=== PATIENT | male | born 1970 | race African-American/Black ===

== ENCOUNTER 2025-02-09 00:47 | Day surgery (SDC) | payer MEDICARE, SELFPAY ==
--- OUTSIDE RECORDS SUMMARY | 2023-07-29 07:25 | XMS_ITS | Continuity of Care Document ---
Author Organization [facility] Address [address] [place] [address] Phone Care Team Providers Care Conference Planning Manager Name Role Phone Abraham MIR, Casper Unavailable Unavailabl e Advance Directives Directive Yes / No Effective Date File Name No Information Encounters Encounter Description Practice Location Reason(s) For Visit Diagnoses Date Provider Providers Copied on [facility] , [address], [place], [place], [address], tel:[phone] [facility] No Information Caesar Shirley. [address], [place], [place], [address], [place]. tel:[phone] Family History Family Member Type Diagnosis Age At Onset No Information Payers Payer name Insurance type Covered libertarian ID Authoriza tion(s) No Information Social History Type Description Quantity Date Captured Comments Sex Male Smoking Status No Information Chief Complaint And Reason For Visit No Information Reason For Referral Reason For Referral No Information History Of Present Illness Encounter Date Complaint History Of Prese nt Illness No Information Functional Status Date Functional Assessmen t No Information Instructions Date Instruction Additional Infor mation No Information Assessments Type Assessment Date No Information Patient Care Teams Name Effective Dates (start - stop) Status Members No Information
--- OUTSIDE RECORDS SUMMARY | 2024-06-23 03:30 | XMS_ITS ---
Author Organization [facility] Address [address] [place] [id number] Care Team Providers Care Swatch Paster Name Role Phone GODWIN ASHTON Primary Care Provider Social History Sex Assigned At : Social History Observation Description Sex Assigned At Male Encounters Encounter Location Date Provider Diagnosis [facility] [address] [place] [id number] 06/23/2024 GODWIN ASHTON Plan Of Treatment No Information Progress Notes * Kareem REESEi ADOB:[birth year] (54 yo M)Acc No.[id number]:06/23/2024 Progress Notes Patient: Harmony MEDINA Provider: Juan ASHTON M.D. :1970 A ge:53 Y S ex:Male Date:06/23/2024 Address:[facility] [place] [place], [place] Subjective: * Chief Complaints: * * Medical History: * Ocular Surgical History: Objective: * Vitals: Vision: Spectacle Rx: Contact Lens: Eye Examination: Special Tests: Assessment: Plan: * Treatment: Care Plan: * Problems: * Billing Information: * Visit Code: * Procedure Codes: * Electronic signature of KASIA ASHTON MD on 02/09/2025 at 12:53 AM CDT Sign off status: Pending * Provider: Juan ASHTON M.D. Date: 06/23/2024 Generated for David mercedes/Angela/Shu on: 0 02/09/2025 12:53 AM CDT
--- OUTSIDE RECORDS SUMMARY | 2024-06-30 04:00 | XMS_ITS ---
Author Organization [facility] Address [address] [place] [id number] Care Team Providers Care Production Line Technician Name Role Phone GODWIN ASHTON Primary Care Provider [phone] Sinai Pritchett Unavailable [phone] REASON FOR VISIT 3 month f/u Social History Sex Assigned At : Social History Observation Description Sex Assigned At Male Encounters Encounter Location Date Provider Diagnosis [facility] [address] [place] [id number] 06/30/2024 [facility] Pritchett Plan Of Treatment No Information Progress Notes * Harmony REESE ADOB:[birth year] (54 yo M)Acc No.[id number]:06/30/2024 Patient: Felton HOLGUIN Harmony Yancy Provider: Naeem Pritchett DPM :1970 A ge:53 Y S ex:Male Date:06/30/2024 Address:[facility] [place] [place] [facility] Pcp:GODWIN ASHTON Subjective: * Chief Complaints: * 1 . 3 month f/u. * Medical History: Objective: * Vitals: Assessment: Plan: * Treatment: Care Plan: * Problems: * Billing Information: * Visit Code: * Procedure Codes: * Electronic signature of Brayden Pritchett DPM on 02/09/2025 at 12:53 AM CDT Sign off status: Pending * Provider: Naeem Pritchett DPM Date: 0 06/30/2024 Generated for David mercedes/Angela/Shu on: 0 02/09/2025 12:53 AM CDT
--- OUTSIDE RECORDS SUMMARY | 2024-06-30 10:30 | XMS_ITS ---
Author Organization [facility] Address [address] [place] [phone] Care Team Providers Care Chief Specialist Leed Name Role Phone GODWIN ASHTON Primary Care Provider [phone] S[facility] Pritchett Unavailable [phone] REASON FOR VISIT f/u Social History Sex Assigned At : Social History Observation Description Sex Assigned At Male Encounters Encounter Location Date Provider Diagnosis [facility] [address] [place] [id number] 06/30/2024 S[facility] Pritchett Plan Of Treatment No Information Progress Notes * Harmony REESE ADOB:[birth year] (54 yo M)Acc No.[id number]:06/30/2024 Patient: Felton KAYLYNNEAL Harmony Haines Provider: Naeem Pritchett DPM :1970 A ge:53 Y S ex:Male Date:06/30/2024 Address:[facility] [address] [facility] Pcp:GODWIN ASHTON Subjective: * Chief Complaints: * 1 . F/u. * Medical History: Objective: * Vitals: Assessment: [...]
--- OUTSIDE RECORDS SUMMARY | 2024-07-20 09:15 | XMS_ITS ---
Author Organization [facility] Address [address] [place], [place] [id number] Care Team Providers Care Booky Name Role Phone GODWIN ASHTON Primary Care Provider LELA COLLAZO [phone] Social History Sex Assigned At : Social History Observation Description Sex Assigned At Male Encounters Encounter Location Date Provider Diagnosis [facility] [address] [place], [place] [phone] 07/20/2024 LELA COLLAZO Plan Of Treatment No Information Progress Notes * Kareem REESEi ADOB:[birth year] (54 yo M)Acc No.[id number]:07/20/2024 Progress Notes Patient: Harmony MEDINA Appointment Provider: Yancy COLLAZO NP :1970 A ge:53 Y S ex:Male Date:07/20/2024 Address:[facility] [address] [facility] Pcp:GODWIN ASHTON Subjective: * Chief Complaints: * * Medical History: * Ocular Surgical History: Objective: * Vitals: Vision: Spectacle Rx: Contact Lens: Eye Examination: Special Tests: Assessment: Plan: * Treatment: Care Plan: * Problems: * Billing Information: * Visit Code: * Procedure Codes: * Electronic signature of PORSHA EDWARD on 02/09/2025 at 12:52 AM CDT Sign off status: Pending * Appointment Provider: Yancy COLLAZO NP Date: 0 07/20/2024 Generated for David mercedes/Angela/Shu on: 0 02/09/2025 12:52 AM CDT
--- OUTSIDE RECORDS SUMMARY | 2024-08-18 04:00 | XMS_ITS ---
Author Organization [facility] Address [address] [place] [phone] Care Team Providers Care Scaler Name Role Phone GODWIN ASHTON Primary Care Provider OPAL OVALLE [phone] REASON FOR VISIT ANNUAL DM EYE EXAM Social History Sex Assigned At : Social History Observation Description Sex Assigned At Male Encounters Encounter Location Date Provider Diagnosis [facility] [address] [place], [place] [phone] 08/18/2024 OPAL OVALLE Plan Of Treatment No Information Progress Notes * Harmony REESE ADOB:[birth year] (54 yo M)Acc No.[id number]:08/18/2024 Patient: Felton HOLGUIN Harmony Haines Provider: Ena OVALLE OD :1970 A ge:53 Y S ex:Male Date:08/18/2024 Address:[facility] [address] [place], [place] Pcp:GODWIN ASHTON Subjective: * Chief Complaints: * 1 . ANNUAL DM EYE EXAM. * Medical History: * Ocular Surgical History: Objective: * Vitals: Vision: Spectacle Rx: Contact Lens: Eye Examination: Special Tests: Assessment: Plan: * Treatment: * Billing Information: * Visit Code: * Procedure Codes: * Electronic signature of JARAD OVALLE OD on 02/09/2025 at 12:53 AM CDT Sign off status: Pending * Provider: Ena OVALLE OD Date: 0 08/18/2024 Generated for David mercedes/Angela/Shu on: 0 02/09/2025 12:53 AM CDT
--- OUTSIDE RECORDS SUMMARY | 2024-12-30 12:00 | XMS_ITS ---
Author Organization [facility] Address [address] [address] Care Team Providers Care Ceramic Coater Machine Name Role Phone BeGregoryDeclan Unavailable [phone] Social History Sex Assigned At : Social History Observation Description Sex Assigned At Male Problems Problem Type SNOMED Code ICD Code Onset Dates Problem Status W/U Status Risk Notes Problem Chronic kidney disease stage 3 (disorder) (368931606) Stage 3 chronic kidney disease (N18.30) Active confirmed Problem Heart failure (30538871) Heart failure, unspecified (I50.9) Active confirmed Problem Obesity (105192223) Obesity, unspecified (E66.9) Active confirmed Problem Diabetic renal disease (541959752) Type 2 diabetes mellitus with diabetic chronic kidney disease (E11.22) Active confirmed Encounters Encounter Location Date Provider Diagnosis [facility] [address] [facility] [address] [place] [address] 12/30/2024 Declan Be Stage 3 chronic kidney disease N18.30 ; Heart failure, unspecified I50.9 ; Obesity, unspecified E66.9 and Type 2 diabetes mellitus with diabetic chronic kidney disease E11.22 Assessments Encounter Date Diagnosis (ICD Code) Assessment Notes Treatment Notes Treatment Clinical Notes Section Notes 12/30/2024 Stage 3 chronic kidney disease (ICD-10 - N18.30) 12/30/2024 Heart failure, unspecified (ICD-10 - I50.9) 12/30/2024 Obesity, unspecified (ICD-10 - E66.9) 12/30/2024 Type 2 diabetes mellitus with diabetic chronic kidney disease (ICD-10 - E11.22) Plan Of Treatment Next Appt Details Provider Name:Declan Be , 02/10/2025 02:30:00 PM, [address], [place], [address], Progress Notes * Hamrony REESE ADOB:[birth year] (54 yo M)Acc No.[id number]:12/30/2024 Progress Notes Patient: Harmony MEDINA Provider: Farnaz KOCH MD, F.A.C.P, F.A.S.N. :1970 A ge:54 Y S ex:Male Date:12/30/2024 Address:[address] [place] [address] [facility] [facility] Subjective: * Chief Complaints: * * Medical History: Objective: * Vitals: Assessment: * Assessment: 1. S tage 3 chronic kidney disease - N18.30 (Primary) 2 . H eart failure, unspecified - I50.9 3 . O besity, unspecified - E66.9 4 . T ype 2 diabetes mellitus with diabetic chronic kidney disease - E11.22 Plan: * Treatment: * Billing Information: * Visit Code: 05340 Office Visit, New Pt., Level 5. * Procedure Codes: * Electronic signature of Jt Be MD on 02/09/2025 at 12:52 AM CDT Sign off status: Pending * Provider: Farnaz KOCH MD, F.A.C.P, F.A.S.N. Date: 12/30/2024 Generated for Printing/Faxing/eTransmitting on: 0 02/09/2025 12:52 AM CDT
--- OUTSIDE RECORDS SUMMARY | 2025-01-20 12:00 | XMS_ITS ---
Author Organization [facility] Address [address] [address] Care Team Providers Care Shipping Supervisor Name Role Phone Declan Be Unavailable [phone] Social History Sex Assigned At : Social History Observation Description Sex Assigned At Male Encounters Encounter Location Date Provider Diagnosis [place] [facility] [address] [facility] [address] [place] [address] 01/20/2025 Declan Haile Stage 3 chronic kidney disease N18.30 ; Heart failure, unspecified I50.9 ; Obesity, unspecified E66.9 ; Type 2 diabetes mellitus with diabetic chronic kidney disease E11.22 and Proteinuria, unspecified R80.9 Assessments Encounter Date Diagnosis (ICD Code) Assessment Notes Treatment Notes Treatment Clinical Notes Section Notes 01/20/2025 Stage 3 chronic kidney disease (ICD-10 - N18.30) 01/20/2025 Heart failure, unspecified (ICD-10 - I50.9) 01/20/2025 Obesity, unspecified (ICD-10 - E66.9) 01/20/2025 Type 2 diabetes mellitus with diabetic chronic kidney disease (ICD-10 - E11.22) 01/20/2025 Proteinuria, unspecified (ICD-10 - R80.9) Plan Of Treatment Next Appt Details Provider Name:Declan Be , 02/10/2025 02:30:00 PM, [address] [facility], [place], [address], Progress Notes * Harmony REESE ADOB:[birth year] (54 yo M)Acc No.[id number]:01/20/2025 Patient: Felton KAYLYNNEAL Harmony Haines Provider: Farnaz KOCH MD, F.A.C.P, F.A.S.N. :1970 A ge:54 Y S ex:Male Date:01/20/2025 Address:[place], [place] Subjective: * Chief Complaints: Objective: Assessment: * Assessment: 1. S tage 3 chronic kidney disease - N18.30 (Primary) 2 . H eart failure, unspecified - I50.9 3 . O besity, unspecified - E66.9 4 . T ype 2 diabetes mellitus with diabetic chronic kidney disease - E11.22 5 . P roteinuria, unspecified - R80.9 Plan: * Billing Information: * Visit Code: 45978 Office Visit, Est Pt., Level 5. * Procedure Codes: * Electronic signature of Jt Be MD on 02/09/2025 at 12:51 AM CDT Sign off status: Pending * Provider: Farnaz KOCH MD, F.A.C.P, F.A.S.N. Date: 01/20/2025 Generated for Printing/Faxing/eTransmitting on: 02/09/2025 12:51 AM CDT
--- OUTSIDE RECORDS SUMMARY | 2025-01-22 13:00 | XMS_ITS ---
Author Organization [facility] Address [address] [address] Care Team Providers Care Fitter'S Assistant Name Role Phone Gregory Bejit Unavailable [phone] Social History Sex Assigned At : Social History Observation Description Sex Assigned At Male Encounters Encounter Location Date Provider Diagnosis [place] [facility] [address] [facility] [address] [place] [address] 01/22/2025 Declan Be Plan Of Treatment Next Appt Details Provider Name:Declan Be , 02/10/2025 02:30:00 PM, [address] [place] [address], [address], Progress Notes * Harmony REESE ADOB:[birth year] (54 yo M)Acc No.[id number]:01/22/2025 Progress Notes Patient: Harmony MEDINA Provider: Farnaz KOCH MD, F.A.C.P, F.A.S.N. :1970 A ge:54 Y S ex:Male Date:01/22/2025 Address:[place] [facility] Subjective: * Chief Complaints: Objective: Assessment: Plan: * Billing Information: * Visit Code: * Procedure Codes: * Electronic signature of Jt Be MD on 02/09/2025 at 12:52 AM CDT Sign off status: Pending * Provider: Farnaz KOCH MD, F.A.C.P, F.A.S.N. Date: 01/22/2025 Generated for Printing/Faxing/eTransmitting on: 02/09/2025 12:52 AM CDT
[2025-02-04 10:54] VITALS: BMI 32.7
--- OUTSIDE RECORDS SUMMARY | 2025-02-09 00:51 | XMS_ITS | Encounter Summary ---
Author Organization [facility] Address [facility] [place] [address] Care Team Providers Care Financial Sales Manager Name Role Phone Lang Olivas DO Primary Care Provider [phone] Chacho Allen MD Unavailable [phone] Rayshawn Young MD Primary Care Provider [phone] Encounter Details Date Type Department Care Team (Late st Contact Info) Description 11/25/2019 Pre-Procedure Call [facility] Customer Service [place] [address] Chacho Allen MD [facility]. [facility] [address] [place] [address] Social History Tobacco Use Types Packs/Day Years Used Date Smoking Tobacco: Never Smokeless Tobacco: Never Alcohol Use Standard Drinks/Week Comments No 0 (1 standard drink = 0.6 oz pur e alcohol) Sex and Gender Information Value Date Recorded Sex Assigned at Male 12/23/2019 5:33 PM CDT Legal Sex Male 5:45 PM CDT Gender Identity Male 12/23/2019 5:33 PM CDT Sexual Orientation Straight 12/23/2019 5: 33 PM CDT COVID-19 Exposure Response Date Recorded In the last month, have you been in contact with someone who was confirmed or suspected to have Coronavirus / COVID-19? No / Unsure 11/10/2019 9:11 AM CDT documented as of this encounter Functional Status * RETIRED Are you deaf or do you have serious difficulty hearing Answer Date of Assessment Author Status No 11/04/2019 2:25 PM CDT Activ e * RETIRED Are you blind or do you have serious difficulty seeing, even when wearing glasses? Answer Date of Assessment Author Status No 11/04/2019 2:25 PM CDT Activ e * Do you have serious difficulty walking or climbing stairs? Answer Date of Assessment Author Status No 11/04/2019 2:25 PM CDT Julia Strange RN Active * Do you have difficulty dressing or bathing? Answer Date of Assessment Author Status No 11/04/2019 2:25 PM CDT Julia Strange RN Active * Because of a physical, mental, or emotional condition, do you have difficulty doing errands alone such as visiting a doctor's office or shopping? Answer Date of Assessment Author Status No 11/04/2019 2:25 PM CDT Julia Strange RN Active documented as of this encounter Mental Status * Because of a physical, mental, or emotional condition, do you have serious difficulty concentrating, remembering, or making decisions? Answer Entry Date Author Status No 11/04/2019 2:25 PM CDT Julia Strange RN Active documented in this encounter Plan of Treatment Not on file documented as of this encounter Visit Diagnoses Not on filedocumented in this encounter Additional Health Concerns Infection Onset Date Last Indicated Resolved Time COVID-19 Rule Out 11/30/2019 11/30/2019 11/30/2019 1:13 PM CDT MRSA Comment:Pos. MRSA nares 12/02/2019 12/03/2019 12/03/2019 COVID-19 Rule Out 04/25/2020 04/25/2020 04/26/2020 9:57 PM SHANK ARCHER documented as of this encounter Care Teams Financial Sales Manager Relationship Specialty Start Date End Date Lang Olivas DO PCP - General FAMILY PRACTICE 11/18/19 07/23/22 [place] [address] PCP - General FAMILY PRACTICE 07/24/22 Chacho Allen MD [facility] [address] [place], [place] [id number] Consulting Physician CLINICAL CARDIAC ELECTROPHYSIOLOGY 04/22/20 documented as of this encounter
--- OUTSIDE RECORDS SUMMARY | 2025-02-09 00:51 | XMS_ITS | Encounter Summary ---
Author Organization [facility] Address [address] [place] [address] Care Team Providers Care Oyster Shipper Name Role Phone Lang Olivas DO Primary Care Provider [phone] Chacho Allen MD Unavailable [phone] Rayshawn Young MD Primary Care Provider [phone] Encounter Details Date Type Department Care Team (Late st Contact Info) Description 07/07/2021 MYOMO Message Enc [facility] [address] [place], [facility] Provider [employer] Social History Tobacco Use Types Packs/Day Years Used Date Smoking Tobacco: Never Smokeless Tobacco: Never Alcohol Use Standard Drinks/Week Comments No 0 (1 standard drink = 0.6 oz pure alcohol) drinks some alcohol on the holidays. Sex and Gender Information Value Date Recorded [...] have Coronavirus / COVID-19? No / Unsure 06/07/2021 9:09 AM DROP HAMMER PILE DRIVER OPERATOR documented as of this encounter Functional Status * RETIRED Are you deaf or do you have serious difficulty hearing Answer Date of Assessment Author Status No 02/13/2021 6:00 PM CDT Activ e * RETIRED Are you blind or do you have serious difficulty seeing, even when wearing glasses? Answer Date of Assessment Author Status No 02/13/2021 6:00 PM CDT Activ e * Do you have serious difficulty walking or climbing stairs? Answer Date of Assessment Author Status No 02/13/2021 6:00 PM Capri STRANGE Chi, RN Active * Do you have difficulty dressing or bathing? Answer Date of Assessment Author Status No 02/13/2021 6:00 PM Capri STRANGE Chi, RN Active * Because of a physical, mental, or emotional condition, do you have difficulty doing errands alone such as visiting a doctor's office or shopping? Answer Date of Assessment Author Status No 02/13/2021 6:00 PM Capri STRANGE Chi, RN Active documented as of this encounter Mental Status * Because of a physical, mental, or emotional condition, do you have serious difficulty concentrating, remembering, or making decisions? Answer Entry Date Author Status No 02/13/2021 6:00 PM Capri STRANGE Chi, RN Active documented in this encounter Plan of Treatment Not on file documented as of this encounter Goals Goal Patient Goal Type Associated Problems Recent Progress Patient-Stated? Author Consistently take medications as Prescribed General No George Acosta RN documented as of this encounter Visit Diagnoses Not on filedocumented in this encounter Additional Health Concerns Infection Onset Date Last Indicated Resolved Time MRSA Comment:Pos. MRSA nares 12/02/2019 12/03/2019 12/03/2019 documented as of this encounter Care Teams Oyster Shipper Relationship Specialty Start Date End Date Lang Olivas DO PCP - General FAMILY PRACTICE 11/18/19 07/23/22 Rayshawn Young MD [address] [address] PCP - General FAMILY PRACTICE 07/24/22 Chacho Allen MD [address] [id number] Consulting Physician CLINICAL CARDIAC ELECTROPHYSIOLOGY 04/22/20 documented as of this encounter
--- OUTSIDE RECORDS SUMMARY | 2025-02-09 00:51 | XMS_ITS | Encounter Summary ---
Author Organization [facility] Address [address] [place] [address] Care Team Providers Care Solar Hot Water Installer Name Role Phone Unavailable Primary Care Provider Unavailabl e Encounter Details Date Type Department Care Team (Late Contact Info) Description 01/29/2025 Abstract [facility] Heart and Vascular - [address] [facility] [address] [address] [facility] [address] [place] [phone] Provider, Abstract NO ADDRESS ON FILE Social History Tobacco Use Types Packs/Day Years Used Date Smoking Tobacco: Never Sex and Gender Information Value Date Recorded Sex Assigned at Not on file Legal Sex Male 1:28 PM CDT Gender Identity Not on file Sexual Orientation Not on file documented as of this encounter Plan of Treatment Upcoming Encounters Date Type Department Care Team (Late Contact Info) Description 02/16/2025 9:00 AM CDT Procedure visit [facility] Heart and Vascular Electrophysiology - [address] [facility] [address] [address] [facility] [address] [place] [phone] 07/13/2025 1:00 PM BUCKLE COVERER Appointment [facility] Heart and Vascular Testing [facility] [address] [facility] [address] [place] [address] [place] [address] [facility] [address] [place] [address] 07/13/2025 2:00 PM BUCKLE COVERER Office Visit [facility] Heart and Vascular - [address] [facility] 300 [address] [facility] [address] [place] [address] Sylvia Alonzo, REAL ESTATE ASSOCIATE-DIRECTOR OF CORPORATE SALES [address] [address] [facility] [address] [place] [address] 07/13/2025 2:30 PM BUCKLE COVERER Procedure visit [facility] Heart and Vascular Electrophysiology - [address] [facility] [facility] [address] [address] [address] [facility] [address] [place] [address] documented as of this encounter Visit Diagnoses Not on filedocumented in this encounter
--- OUTSIDE RECORDS SUMMARY | 2025-02-09 00:51 | XMS_ITS | Encounter Summary ---
Author Organization [facility] Address [address] [place] [address] Care Team Providers Care Professional Soccer Player Name Role Phone Lang Olivas DO Primary Care Provider [phone] Chacho Allen MD Unavailable [phone] Rayshawn Young MD Primary Care Provider [phone] Encounter Details Date Type Department Care Team (Late st Contact Info) Description 04/24/2022 Effektif Message Enc [facility] [address] [facility], [facility] Provider Latitude Monitor is not connecting Social History Tobacco Use Types Packs/Day Years [...] Exposure Response Date Recorded In the last 10 days, have yo u been in contact with someone who was confirmed or suspected to have Coronavirus/COVID-19? No / Unsure 04/24/2022 11:07 AM MATLAB DEVELOPER documented as of this encounter Functional Status * RETIRED Are you deaf or do you have serious difficulty hearing Answer Date of Assessment Author Status No 03/16/2022 6:14 PM CDT Activ e * RETIRED Are you blind or do you have serious difficulty seeing, even when wearing glasses? Answer Date of Assessment Author Status No 02/13/2021 6:00 PM CDT Activ e * Do you have serious difficulty walking or climbing stairs? Answer Date of Assessment Author Status No 03/16/2022 6:14 PM CDT Qing Velasco RN Active * Do you have difficulty dressing or bathing? Answer Date of Assessment Author Status No 03/16/2022 6:14 PM CDT Qing Velasco RN Active * Because of a physical, mental, or emotional condition, do you have difficulty doing errands alone such as visiting a doctor's office or shopping? Answer Date of Assessment Author Status No 03/16/2022 6:14 PM Qing Sears RN Active documented as of this encounter Mental Status * Because of a physical, mental, or emotional condition, do you have serious difficulty concentrating, remembering, or making decisions? Answer Entry Date Author Status No 03/16/2022 6:14 PM CDQing Ny RN Active documented in this encounter Plan [...] documented as of this encounter Care Teams Professional Soccer Player Relationship Specialty Start Date End Date Lang Olivas DO PCP - General FAMILY PRACTICE 11/18/19 07/23/22 Rayshawn Young MD [address] [address] PCP - General FAMILY PRACTICE 07/24/22 Chacho Allen MD [facility]. [address] [address] Consulting Physician CLINICAL CARDIAC ELECTROPHYSIOLOGY 04/22/20 documented as of this encounter
--- OUTSIDE RECORDS SUMMARY | 2025-02-09 00:51 | XMS_ITS | Encounter Summary ---
Author Organization [facility] Address [facility] [place] [address] Care Team Providers Care Legal Compliance Officer Name Role Phone Lang Olivas DO Primary Care Provider [phone] Chacho Allen MD Unavailable [phone] Rayshawn Young MD Primary Care Provider [phone] Encounter Details Date Type Department Care Team (Late st Contact Info) Description 05/09/2021 Abstract [facility] [address] Yohan Hawkins MA Social History Tobacco Use Types Packs/Day Years [...] have Coronavirus / COVID-19? 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 documented as of this encounter Functional Status [...] Acosta RN documented as of this encounter Procedures Procedure Name Priority Date/Time Associated Diagnosis Comments BASIC METABOLIC PANEL Routine 05/08/2021 LIPID PANEL Routine 05/08/2021 HEMOGLOBIN, GLYCOSYLATED Routine 05/08/2021 documented in this encounter Results * HEMOGLOBIN, GLYCOSYLATED (05/08/2021) HGB A1C 9.3 % 05/08/2021 us Doc [facility] Final Result * BASIC METABOLIC PANEL (05/08/2021) SODIUM S/P/B 136 POTASSIUM S/P/B 4.5 CO2 28 CHLORIDE S/P/B 100 GLUCOSE 215 mg/dL CALCIUM S/P/B 9.3 BUN 18 CREATININE S/P/B 1.29 0.7 - 1.3 EGFR AFR. AMER. 75 <=90 EGFR NON-AFR. AMER. 65 <=90 05/08/2021 us Doc [facility] Final Result * LIPID PANEL (05/08/2021) CHOLESTEROL 173 HDL 45 TRIGLYCERIDES 141 NON HDL CHOLESTEROL 128 LDL (CALCULATED) 104 05/08/2021 us Doc [facility] Final Result documented in this encounter Visit Diagnoses Not on filedocumented in this encounter Additional Health Concerns Infection Onset Date Last Indicated Resolved Time MRSA Comment:Pos. MRSA nares 12/02/2019 12/03/2019 12/03/2019 documented as of this encounter Care Teams Legal Compliance Officer Relationship Specialty Start Date End Date Lang Olivas DO PCP - General FAMILY PRACTICE 11/18/19 07/23/22 Rayshawn Young MD [facility]. [facility] [address] [place] [address] PCP - General FAMILY PRACTICE 07/24/22 Chacho Allen MD [facility]. [facility] [address] [place] [address] Consulting Physician CLINICAL CARDIAC ELECTROPHYSIOLOGY 04/22/20 documented as of this encounter
--- OUTSIDE RECORDS SUMMARY | 2025-02-09 00:51 | XMS_ITS | Encounter Summary ---
Author Organization [facility] Address [address] [place] [address] Care Team Providers Care Real Estate Loan Processor Name Role Phone Unavailable Primary Care Provider Unavailabl e Reason for Visit * Reason Onset Date Comments cardiac clearance for colonoscopy/egd 02/09/25 Encounter Details Date Type Department Care Team (Late st Contact Info) Description 01/28/2025 Telephone [facility] [address] [place] [address] [place] [address] [facility] [address] [place] [address] cardiac clearance for colonoscopy/egd 02/09/25 Social History Tobacco Use Types Packs/Day Years Used Date Smoking Tobacco: Never Sex and Gender Information Value Date Recorded Sex Assigned at Not on file Legal Sex Male 1:28 PM CDT Gender Identity Not on file Sexual Orientation Not on file documented as of this encounter Miscellaneous Notes * Telephone Encounter - Magda Thomson - 02/08/2025 10:10 AM CDT ntermediate acceptable cardiac risk per Dr. Thomas. Form completed and faxed with progress note as requested. Received call from [facility] stating pt reported to them this morning no symptoms of shortness of breath or difficulty climbing a flight of stairs. Left detailed message for pt requesting symptom update for procedure tomorrow. * Telephone Encounter - Brittney Jones - 02/04/2025 12:39 PM CDT Sindy from endoscopy called inquiring about clearance. Advised patient has yet to return call regarding cardiac clearance questions. Questions given and sindy to reach out to patient to have call team line with response * Telephone Encounter - Brittney Jones - 01/28/2025 11:00 AM CDT LVM with direct team line- awaiting answers for cardiac clearance questions. Form scanned into Media - also requesting copies of all cardiac testing and progress notes that have been completed in past 3 years to be sent * Telephone Encounter - Brittney Jones - 01/28/2025 10:50 AM CDT REQUEST FOR CARDIAC CLEARANCE SURGERY FOR: Colonoscopy and EGD on 02/09/25 PATIENT'S CARDIAC HISTORY: dilated cardiomyopathy, essential hypertension, DMII, CKD III, Chronic systolic heart failure, ICD, Dyslipidemia LAST CARDIOLOGY OV: 07/10/24 LAST EK12/25/22 ICD remote interrogation 11/17/24 LAST STRESS: NONE ON FILE RESULTS: LAST ECHO: 02/07/23 IS PATIENT ON: NO BLOOD THINNERS WARFARIN ELIQUIS XARELTO PRADAXA ASA CAN PATIENT HOLD AC? HOW LONG DOES THE PATIENT HAVE ANY CARDIAC SYMPTOMS SUCH CHEST PAIN/DISCOMFORT, SOB, DIZZINESS? CAN THE PATIENT WALK UP FLIGHT OF STAIRS WITHOUT CARDIAC SYMPTOMS? IS THIS PATIENT AN ACCEPTABLE RISK FOR SURGERY? TIME SPENT REVIEWING documented in this encounter Plan of Treatment Upcoming Encounters Date Type Department Care Team (Late st Contact Info) Description 02/16/2025 9:00 AM CDT Procedure visit [facility] Electrophysiology - [address] [facility] [address] [address] [facility] [address] [place] [address] 07/13/2025 1:00 PM GEAR AND SPLINE GRINDER Appointment [facility] [address] [facility] [address] [place] [phone] [place] [address] [facility] [address] [place] [phone] 07/13/2025 2:00 PM GEAR AND SPLINE GRINDER Office Visit [facility] - [address] [facility] [address] [address] [facility] [address] [place] [address] Sylvia Alonzo, SVETA-RACHANA [address] [facility] [address] [place] [phone] 07/13/2025 2:30 PM GEAR AND SPLINE GRINDER Procedure visit [facility] Electrophysiology - [address] [facility] [address] [address] [facility] [address] [place] [phone] documented as of this encounter Visit Diagnoses Not on filedocumented in this encounter
--- OUTSIDE RECORDS SUMMARY | 2025-02-09 00:51 | XMS_ITS | Clinical Summary ---
Author Organization [facility] Address [address] [place] [address] Care Team Providers Care Director Of Video Analytics Name Role Phone Chacho Allen MD Unavailable [phone] Rayshawn Young MD Primary Care Provider [phone] Allergies Active Allergy Reactions Criticality Noted Date Comments Amoxicillin Anaphylaxis High 11/28/2017 Medications fluticasone propionate 50 MCG/ACT nasal spray 1 spray by Each Nostril route daily. 0 Active spironolactone 25 MG tablet Take 1 tablet by mouth daily. 0 Active furosemide 40 MG tablet Take 40 mg by mouth daily. 0 Active cetirizine 10 MG tablet Take 10 mg by mouth daily. 1 Active atorvastatin 20 MG tablet Take 20 mg by mouth nightly at bedtime. Active carvedilol 25 MG tablet Take 1 tablet (25 mg total) by mouth 2 (two) times daily. 180 tablet 1 2 Active famotidine (PEPCID) 20 MG tablet Take 20 mg by mouth daily. 2 Active metFORMIN ER (GLUCOPHAGE-XR) 500 MG 24 hr tablet Take 1,000 mg by mouth every evening. 2 Active JARDIANCE 25 MG tablet Take 25 mg by mouth every morning. 2 Active Fish Oil-Cholecalcif ron (OMEGA-3 GUMMIES OR) Take 1 chewable tablet by mouth daily. Active Elderberry 500 MG Cap Take 500 mg by mouth daily. Active Multiple Vitamins-Minera ls (AIRBORNE OR) Take 1 tablet by mouth daily. Active amLODIPine (NORVASC) 10 MG tablet Take 10 mg by mouth daily. DIRECTED 2 Active LANTUS 100 UNIT/ML injection (VIAL) INJECT 20 UNITS UNDER THE SKIN EVERY DAY AT BEDTIME. *DISCARD VIAL 28 DAYS AFTER OPENING* 3 Active sacubitril-vals delio (ENTRESTO) 49-51 MG tablet TAKE 1 TABLET BY MOUTH 2 (TWO) TIMES DAILY. CALL FOR AN APPOINTMENT 30 tablet 4 Active Active Problems Problem Noted Date Diagnosed Date CHF (congestive heart failure) ([facility]) 03/16/2022 Low left ventricular ejection fraction 1 Chronic systolic congestive heart failure ([facility]) 06/02/2020 CHF exacerbation ([facility]) 12/23/2019 AICD (automatic cardioverter/defibrillator) pres ent 12/02/2019 Congestive heart failure ([facility]) 10/10 Cardiomyopathy ([facility]) 10/10/2018 Constipation 01/11/2017 Anxiety 12/10/2016 History of right inguinal hernia 08/15/2016 Diabetic neuropathy ([facility]) 07/17/2016 Gastroesophageal reflux disease 06/27/2015 Erectile dysfunction 04/12/2015 Benign essential hypertension 12/30/2014 Diabetes mellitus type 2, uncontrolled 5 Hyperlipidemia 06/11/2012 Diabetes mellitus ([facility]) 06/11/2012 Hypertension Immunizations Immunization Administration Dates Next Due Fluzone 6 Months+ Quad (0.5 mL Prefilled Syringe ) 01/28/2020 Hepatitis A Vaccine 04/24/2010 Hepatitis B (Generic: Adult) 10/31/2015 Influenza (Generic) 1970 Influenza Adult (Generic) 04/09/2019,04/09/2019 Pneumococcal (Pneumovax 23) 10/31/2015 Td (Tenivac) preservative free 05/20/2014 Family History Medical History Relation Comments Diabetes Father Diabetes Mother Hypertension Mother Stroke Sister Relation Status Comments Daughter 1 Alive Daughter 2 Alive Daughter 3 Alive Father (Age 50) Mother Alive Sister Alive Social History Tobacco Use Types Packs/Day Years [...] Orientation Straight 12/23/2019 5: 33 PM CDT Last Filed Vital Signs Vital Sign Reading Time Taken Comments Blood Pressure 156/96 07/24/2022 11:36 AM PURIFICATION OPERATOR HELPER Pulse 81 07/24/2022 11:36 AM PURIFICATION OPERATOR HELPER Temperature 37 C (98.6 F) 03/17/2022 11:30 AM CDT Respiratory Rate 17 03/17/2022 11:3 0 AM CDT Oxygen Saturation 99% 07/24/2022 11: 36 AM PURIFICATION OPERATOR HELPER Inhaled Oxygen Concentration - - Weight 111.3 kg (245 lb 6.4 oz) 023 11:36 AM PURIFICATION OPERATOR HELPER Height 167.6 cm (5' 6) 07/24/2022 11:3 6 AM PURIFICATION OPERATOR HELPER Body Mass Index 39.61 07/24/2022 11:36 AM PURIFICATION OPERATOR HELPER Plan of Treatment Health Maintenance Due Date Last Done Comments Colorectal Cancer Screening Colonoscopy (10 Years) 1972 Kidney Health Evaluation 1972 Annual Physical 10/16/1975 Hepatitis C 1990 DTaP, Tdap and Td Vaccines (1 - Tdap) 05/21/2014 05/20/2014 Hepatitis B Vaccines (2 of 3 - 19+ 3-dose series) 11/28/2015 10/31/2015 Pneumococcal Vaccine: 50+ Years (2 of 2 - PCV) 10/30/2016 10/31/2015 Hemoglobin A1C 11/06/2021 05/08/2021, 08/0 09/2019, 10/10/2018, Additional history exists Zoster Vaccines (1 of 2) 2022 Lipid Panel 07/25/2023 07/24/2022, 11/17, 05/08/2021, Additional history exists PHQ-2 (Physician Cachil Dehe) 05/20/2024 Diabetes: Retinopathy Eye Exam 11/19/2024 11/20/2023, 09/25/2023, 08/01/2022, Additional history exists COVID-19 Vaccine ( season) 2025 09/09/2020, 08/12/2020 Meningococcal B Vaccine Aged Out No l onger eligible based on patient's age to complete this topic Meningococcal Vaccine Aged Out No valentina carolin eligible based on patient's age to complete this topic RSV Immunizations Under 20 Months Aged Out No longer eligible based on patient's age to complete this topic Goals Goal Patient Goal Type Associated Problems Recent Progress Patient-Stated? Author Consistently take medications as Prescribed General No George Acosta RN Medical Devices Implanted Type Area Advertising Consultant Device Identifier Shelf Expiration Date Model / Serial / Lot Bs Subcutaneous Icd-12/02/2019 Implanted:Qty: 1 on 12/02/2019 by Chacho Allen MD ICD Left: Chest [employer] 07/15/2021 [id number] / [id number] / Lead-12/02/2019 Implanted:Qty: 1 on 12/02/2019 by Chacho Allen MD Lead Implant [employer] 07/15/2021 [id number] / [id number] / Procedures Procedure Name Priority Date/Time Associated Diagnosis Comments DIABETIC RETINOPATHY EXAM (POSITIVE)(SCAN ORDER) Routine 11/20/2023 LIPID PANEL Routine 07/24/2022 12:16 PM PURIFICATION OPERATOR HELPER Mixed hyperlipidemia HEMOGLOBIN, GLYCOSYLATED Routine 05/08/2021 from Last 3 Months or Most Recently Relevant to Health Maintenance Results * DIABETIC RETINOPATHY EXAM (POSITIVE) (11/20/2023) [facility] Scanned SCANNING Final Resu lt [facility] * (ABNORMAL) LIPID PANEL (07/24/2022 12:16 PM PURIFICATION OPERATOR HELPER) CHOLESTEROL 182 <200 MG/DL 07/24/2022 1:00 PM PURIFICATION OPERATOR HELPER [facility] TRIGLYCERIDES 146 <150 MG/DL 07/24/2022 1:00 PM PURIFICATION OPERATOR HELPER [facility] HDL 43 >40.0 MG/DL 07/24/2022 1:00 PM [facility] LDL (CALCULATED) 110(H) <100 MG/DL 07/24/2022 1:00 PM [facility] NON HDL CHOLESTEROL 139(H) <130 MG/DL 07/24/2022 1:00 PM [facility] CHOL/HDL RATIO 4.2 0.0 - 4.5 07/24/2022 1:00 PM [facility] VLDL CALCULATION 29 5 - 55 MG/DL 07/24/2022 1:00 PM [facility] LIPID INTERPRETATION 07/24/2022 1:00 PM [facility] Comment: [facility] REPORT RECOMMENDATIONS: ADULT CHILD LOW RISK: CHOLESTEROL <200 <170 TRIGLYCERIDE <150 --- HDL >=60 --- LDL <100 <110 BORDERLINE: CHOLESTEROL 200-239 170-199 TRIGLYCERIDE 150-199 --- HDL 40-59 --- LDL 100-159 110-129 HIGH RISK: CHOLESTEROL >=240 >=200 TRIGLYCERIDE >=200 --- HDL <40 --- LDL >=160 >=130 07/24/2022 12:1 6 PM PURIFICATION OPERATOR HELPER Crissy Sotomayor FITTER TYPE BAR AND SEGMENT[facility] Final Re sult [facility] [address] [place] [address], * HEMOGLOBIN, GLYCOSYLATED (05/08/2021) HGB A1C 9.3 % 05/08/2021 Doc [facility] Final Result from Last 3 Months or Most Recently Relevant to Health Maintenance Additional Health Concerns Infection Onset Date Last Indicated MRSA Comment:Pos. MRSA nares 12/02/2019 12/03/2019 12/03/2019 Insurance MEDICAID [employer] Advance Directives * Full Code (Latest Code Status on File) Date Activated Date Inactivated Comments 03/16/2022 3:31 PM 03/17/2022 3:59 PM * Full Code Date Activated Date Inactivated Comments 02/13/2021 10:01 PM 02/14/2021 7:44 PM * Full Code Date Activated Date Inactivated Comments 12/23/2019 2:45 PM 12/25/2019 4:12 PM * Full Code Date Activated Date Inactivated Comments 12/02/2019 5:15 PM 12/03/2019 2:54 PM Care Teams Director Of Video Analytics Relationship Specialty Start Date End Date Rayshawn Young MD [address] [address] PCP - General FAMILY PRACTICE 07/24/22 Chacho Allen MD [address] [address] Consulting Physician CLINICAL CARDIAC ELECTROPHYSIOLOGY 04/22/20
--- OUTSIDE RECORDS SUMMARY | 2025-02-09 00:52 | XMS_ITS | Patient Health Record ---
Author Organization [facility] Address [address] [place], [place] [id number] Care Team Providers Care Power Line Lineman Name Role Phone GODWIN ASHTON Primary Care Provider [facility] Unavailable [phone] LELA COLLAZO Unavailable [phone] OPAL OVALLE Unavailable [phone] Allergies Allergen (clinical drug ingredient) Drug/Non Drug Allergy documented on EMR Reaction Allergy Type Onset Date Status amoxicillin Amoxicillin Face swelling Drug Allergy Active Reason For Referral No Information Medications Medication SIG (Take, Route, Frequency, Duration) Notes Start Date End Date Status amLODIPine Besylate 10 MG 1 tablet Orally Once a day Active Spironolactone 25 MG 1 tablet Orally Active Entresto 49-51 MG 1 tablet Orally Twice a day Active Furosemide 40 MG 1 tablet Orally Once a day Active Omeprazole Magnesium 20 MG 1 tablet 30 minutes before morning meal Orally Once a day; Duration: 90 days Active Rosuvastatin Calcium 40 MG 1 tablet Orally Once a day; Duration: 90 days Collaborative Practice Physician: Dr. Oz Santiago 11/08/2023 Active metFORMIN HCl ER 500 MG 2 tablets Orally twice a day; Duration: 90 days Collaborative Practice Physician: Dr. Oz Santiago. change from IR to ER formula authorized verbally to pharmacy on 10/17/2023. 10/17/2023 Active Gabapentin 400 MG 1 capsule Orally three times a day; Duration: 30 days Collaborative Practice Physician: Dr. Oz Santiago 10/11/2023 Active Cetirizine HCl 10 MG 1 tablet Orally Once a day; Duration: 90 days Collaborative Practice Physician: Dr. Oz Santiago 02/13/2023 Active Ondansetron HCl 8 MG 1 tablet as needed Orally every 6 hours; Duration: 30 days Collaborative Practice Physician: Dr. Oz Santiago Active Vitamin C 500 MG 1 tablet Orally Once a day; Duration: 90 days Collaborative Practice Physician: Dr. Oz Santiago 02/13/2023 Active Iron 325 (65 Fe) MG 1 tablet Orally once a day; Duration: 90 days Collaborative Practice Physician: Dr. Oz Santiago 02/13/2023 Active Fluticasone Propionate 50 MCG/ACT 1 spray in each nostril Nasally Twice a day; Duration: 90 days [facility] Physician: Dr. Oz Santiago Active Famotidine 20 MG 1 tablet at bedtime as needed Orally Once a day Not-Taking Chlorthalidone 50 MG 1 tablet in the morning with food Orally once a day; Duration: 90 days Collaborative Practice Physician: Dr. Oz Santiago 01/29/2023 Active Carvedilol 25 MG 1 tablet with food Orally Twice a day; Duration: [address] [facility] Practice Physician: Dr. Oz Santiago Active Blood Glucose Test - as directed In Vitro three times a day; Duration: [address] [facility] Practice Physician: Dr. Oz Santiago 02/13/2023 Active Blood Glucose Monitor System w/Device as directed external three times a day; Duration: [address] [facility] Practice Physician: Dr. Oz Santiago 02/13/2023 Active Blood Pressure Digital Soln - as directed external three times a day; Duration: 90 days Collaborative Practice Physician: Dr. Oz Santiago 06/24/2023 Active Lancet Device - as directed external three times a day; Duration: [address] [facility] Practice Physician: Dr. Oz Santiago 02/13/2023 Active Immunizations Vaccine Route Administration Date Status Comme nts Zoster Vaccine Recombinant (Shingrix) IM Intramuscular 01/29/2023 Administered Pt tolerated well. No adverse reaction noted...TRANDLE/ RMA Social History Tobacco Use: Social History Observation Description Date Details (start date - stop date) Never Smoker NA - NA Sex Assigned At : Social History Observation Description Sex Assigned At Male Tobacco Use/Smoking Question Answer Notes Are you a: never smoker Alcohol Screen (Audit-C) Question Answer Notes Did you have a drink containing alcohol in the p ast year? No Points 0 Interpretation Negative SBIRT (2018 Edition) Question Answer Notes Patient refused/declined SBIRT screening at this time? No 1. How often do you have a drink containing alco hol? Monthly or less 2. How many drinks containin g alcohol do you have on a typical day when you are drinking? 1 or 2 3. How often do you have five or more drinks on one occasion? Never SCORE 1 Interpretation Negative How many times in the past y ear have you used an illegal drug or used a prescription medication for non-medical reasons? 0 Total Count 0 Interpretation Negative Problems Problem Type SNOMED Code ICD Code Onset Dates Problem Status W/U Status Risk Notes Problem Chronic pain (32174856) Other chronic pain (G89.29) Active confirmed Problem Presbyopia (21997836) Presbyopia (H52.4) Active confirmed Problem Essential hypertension (52623254) Essential (primary) hypertension (I10) Active confirmed BP at goal today. Continue meds Problem Melena (9145195) Melena (K92.1) Active confirme d Problem Acquired hallux valgus (51111817) Hallux valgus (acquired), unspecified foot (M20.10) Active confirmed Problem Hammer toe (689980462) Other hammer toe(s) (acquired), unspecified foot (M20.40) Active confirmed Problem Acquired deformity of foot (294067196135363) Other acquired deformities of unspecified foot (M21.6X9) Active confirmed Problem Human immunodeficiency virus (HIV) screening (628078941) Encounter for screening for human immunodeficiency virus [HIV] (Z11.4) Active confirmed Problem Vaccination given (076933432) Encounter for immunization (Z23) Active confirmed Problem 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 Need DM shoe order signed today. has no other concerns. Problem Obesity (521810321) Obesity (BMI 30-39.9) (E66.9) Active confirmed Problem Anemia (000799689) Anemia, unspecified type (D64.9) Active confirmed Problem Heart failure (70651684) Chronic congestive heart failure, unspecified heart failure type (I50.9) Active confirmed Problem Constipation (00023587) Constipation, unspecified constipation type (K59.00) Active confirmed Problem Gastroesophageal reflux disease without esophagitis (649816161) Gastroesophageal reflux disease without esophagitis (K21.9) Active confirmed Problem Uncomplicated moderate persistent asthma (259232364) Moderate persistent asthma without complication (J45.40) Active confirmed Problem Polyneuropathy due to type 2 diabetes mellitus (631775221) Diabetic polyneuropathy associated with type 2 diabetes mellitus (E11.42) Active confirmed Complicati on of his DM which is well controlled currently Problem Hyperlipidaemia (25511875) Hyperlipidemia, unspecified hyperlipidemia type (E78.5) Active confirmed reasonably well controlled Problem Atrial fibrillation (46755415) Atrial fibrillation, unspecified type (I48.91) Active confirmed Problem Microalbuminuria (133057555) Microalbuminuria (R80.9) Active confirmed Problem Chronic kidney disease stage 2 (941115083) Stage 2 chronic kidney disease (N18.2) Active confirmed Caused by DM and HTN Problem Allergy (244766429) Allergy, initial encounter (T78.40XA) Active confirmed Problem Allergy, subsequent encounter (T78.40XD) Active confirmed Problem Left foot drop (430518567272746) Left foot drop (M21.372) Active confirmed Problem Automatic implantable cardiac defibrillator in situ (418869798) Presence of implantable cardioverter-defi brillator (ICD) (Z95.810) Active confirmed Problem Low back pain (493368174) Low back pain, unspecified (M54.50) Active confirmed Problem Abnormal urinalysis (762892012) Abnormal urinalysis (R82.90) Active confirmed Problem Low vision right eye, normal vision left eye (disorder) (297180938389753) Decreased vision of right eye (H54.61) Active confirmed Problem Stricture of esophagus (25517477) History of esophageal stricture (Z87.19) Active confirmed Vital Signs Heart Rate 96 /min 04/14/2024 Male pt here fo r f/u. Voiced no concerns at this time...TRANDLE/RMA Temperature 98.1 degrees Fahrenheit 04/14/2024 Male pt here for f/u. Voiced no concerns at this time...TRANDLE/RMA Respiratory Rate 18 /min 04/14/2024 Male pt her e for f/u. Voiced no concerns at this time...TRANDLE/RMA Oximetry 98 % 04/14/2024 Male pt here fo r f/u. Voiced no concerns at this time...TRANDLE/RMA Blood pressure diastolic 88 mm Hg 04/14/2024 Male pt here for f/u . Voiced no concerns at this time...TRANDLE/RMA Weight-kg 96.62 kg 04/14/2024 Male pt here fo r f/u. Voiced no concerns at this time...TRANDLE/RMA Height 66.5 in 04/14/2024 Male pt here fo r f/u. Voiced no concerns at this time...TRANDLE/RMA Blood pressure systolic 120 mm Hg 04/14/2024 Male pt here for f/u. Voiced no concerns at this time...TRANDLE/RMA Weight 213 lbs 04/14/2024 Male pt here fo r f/u. Voiced no concerns at this time...TRANDLE/RMA BMI 33.86 kg/m2 04/14/2024 Male pt here fo r f/u. Voiced no concerns at this time...TRANDLE/RMA Encounters Encounter Location Date Provider Diagnosis [facility] [address] [id number] 03/11/2024 GODWIN ASHTON Type 2 diabetes mellitus with hyperglycemia, without long-term current use of insulin E11.65 ; Hyperlipidemia, unspecified hyperlipidemia type E78.5 ; Essential (primary) hypertension I10 ; Diabetic polyneuropathy associated with type 2 diabetes mellitus E11.42 ; Stage 2 chronic kidney disease N18.2 and Stable proliferative diabetic retinopathy of left eye associated with type 2 diabetes mellitus E11.3552 [facility] [address] [id number] 04/01/2024 [facility] Tinea unguium B35.1 ; Pain in right foot M79.671 ; Pain in left foot M79.672 and Diabetic polyneuropathy associated with type 2 diabetes mellitus E11.42 [place] [id number] [id number] 04/14/2024 GODWIN ASHTON Type 2 diabetes mellitus with hyperglycemia, without long-term current use of insulin E11.65 ; Diabetic polyneuropathy associated with type 2 diabetes mellitus E11.42 ; Hyperlipidemia, unspecified hyperlipidemia type E78.5 ; Essential (primary) hypertension I10 ; Stage 2 chronic kidney disease N18.2 ; Obesity (BMI 30-39.9) E66.9 and Colon cancer screening Z12.11 [place] [id number] [id number] 03/12/2024 GODWIN ASHTON Assessments Encounter Date Diagnosis (ICD Code) Assessment Notes Treatment Notes Treatment Clinical Notes Section Notes 04/14/2024 Type 2 diabetes mellitus with hyperglycemia, without long-term current use of insulin (ICD-10 - E11.65) very well controlled with A1c 6.9 in November 2023. Need DM shoe order signed today. has no other concerns. 04/14/2024 Diabetic polyneuropathy associated with type 2 diabetes mellitus (ICD-10 - E11.42) Complication of his DM which is well controlled currently 04/01/2024 Tinea unguium (ICD-10 - B35.1) Nails were reduced in length and thickness x6 and reduced in length x3 03/11/2024 Type 2 diabetes mellitus with hyperglycemia, without long-term current use of insulin (ICD-10 - E11.65) very well controlled with A1c 6.9 in November 2023. Need DM shoe order Information required for O&P Lab: A1c 6.9% in November 2023 Weight 211 lbs, BMI 33.5 Exercises 3 times weekly by walking BS: 107 on last CMP Eats a balanced diet with 3 meals per day. Reduced carbohydrates See examination findings 03/11/2024 Hyperlipidemia, unspecified hyperlipidemia type (ICD-10 - E78.5) reasonably well controlled Information required for O&P Lab: A1c 6.9% in November 2023 Weight 211 lbs, BMI 33.5 Exercises 3 times weekly by walking BS: 107 on last CMP Eats a balanced diet with 3 meals per day. Reduced carbohydrates See examination findings 04/01/2024 Pain in right foot (ICD-10 - M79.671) 04/14/2024 Hyperlipidemia, unspecified hyperlipidemia type (ICD-10 - E78.5) reasonably well controlled 03/11/2024 Essential (primary) hypertension (ICD-10 - I10) BP at goal today. Continue meds Information required for O&P Lab: A1c 6.9% in November 2023 Weight 211 lbs, BMI 33.5 Exercises 3 times weekly by walking BS: 107 on last CMP Eats a balanced diet with 3 meals per day. Reduced carbohydrates See examination findings 04/14/2024 Essential (primary) hypertension (ICD-10 - I10) BP at goal today. Continue meds 04/01/2024 Pain in left foot (ICD-10 - M79.672) 03/11/2024 Diabetic polyneuropathy associated with type 2 diabetes mellitus (ICD-10 - E11.42) Complication of his DM which is well controlled currently Information required for O&P Lab: A1c 6.9% in November 2023 Weight 211 lbs, BMI 33.5 Exercises 3 times weekly by walking BS: 107 on last CMP Eats a balanced diet with 3 meals per day. Reduced carbohydrates See examination findings 03/11/2024 Stage 2 chronic kidney disease (ICD-10 - N18.2) Caused by DM and HTN Information required for O&P Lab: A1c 6.9% in November 2023 Weight 211 lbs, BMI 33.5 Exercises 3 times weekly by walking BS: 107 on last CMP Eats a balanced diet with 3 meals per day. Reduced carbohydrates See examination findings 04/01/2024 Diabetic polyneuropathy associated with type 2 diabetes mellitus (ICD-10 - E11.42) 04/14/2024 Stage 2 chronic kidney disease (ICD-10 - N18.2) Caused by DM and HTN 04/14/2024 Obesity (BMI 30-39.9) (ICD-10 - E66.9) 03/11/2024 Stable proliferative diabetic retinopathy of left eye associated with type 2 diabetes mellitus (ICD-10 - E11.3552) Information required for O&P Lab: A1c 6.9% in November 2023 Weight 211 lbs, BMI 33.5 Exercises 3 times weekly by walking BS: 107 on last CMP Eats a balanced diet with 3 meals per day. Reduced carbohydrates See examination findings 04/14/2024 Colon cancer screening (ICD-10 - Z12.11) CRC screening UTD with last FOBT compelted in 04/25/2024 Plan Of Treatment Pending Test Test Name Order Date Fecal Occult Blood 04/25/2023 Fecal Occult Blood 01/29/2023 Fecal Occult Blood 03/28/2023 Urine Microalbumin 10/11/2023 Urine Microalbumin 04/25/2023 Urine Microalbumin 01/15/2023 Lipid Profile 01/15/2023 Insurance Providers Payer Name Payer Address Payer Phone Subscriber Number Group Number Insured Name Patient Relationship to Insured Coverage Start Date Coverage End Date [employer] Medicare Complete [address] [address] [place] [address] [id number] Harmony Reese Self - patient is the insured 4 [facility] Medicare [address] [address] [place] [address] [id number] Harmony Reese Self - patient is the insured 3 4 [facility] [address] [address] [place] [address] [id number] Harmony Reese Self - patient is the insured 3 4 [facility] [address] [address] [place] [address] [id number] Harmony Reese Self - patient is the insured 4 Medical (General) History Medical History History ICD Code HTN DM HLD CHF GERD allergies afib with implanted defibrillator diabetic neuropathy esophageal stricture Surgical History Surgery Date(Month/Year) implanted cardiac defibrillator right inguinal hernia left inguinal hernia esophageal stretching Hospitalization History Reason Date(Month/Year) defibrillator esophageal stricture
--- OUTSIDE RECORDS SUMMARY | 2025-02-09 00:52 | XMS_ITS | Clinical Summary ---
Author Organization [facility] [place] [address] [facility] Address [address] [place] [address] Care Team Providers Care Cone Operator Name Role Phone Unavailable Primary Care Provider Unavailabl e Allergies Active Allergy Reactions Criticality Noted Date Comments Amoxicillin Anaphylaxis,Swelling High 11/28/2017 Swelling of face and mouth Medications fluticasone propionate (FLONASE) 50 mcg/spray [place], Suspension nasal inhaler Administer 2 Sprays in each nostril daily. 11/03/19 23 Active furosemide (LASIX) 40 mg tablet Take 40 mg by mouth daily. Active metFORMIN ER 500 mg tablet,extended release 24 hr Take 1,000 mg by mouth 2 times daily with meals. 02/09/20 22 Active TURMERIC ORAL Take 1 Tablet by mouth daily. Active Ozempic 0.25 mg or 0.5 mg (2 mg/3 mL) Pen Injector INJECT 0.5 MG UNDER THE SKIN ON THE SAME DAY ONCE WEEKLY 09/13/19 24 Active gabapentin (NEURONTIN) 300 mg capsule Take 300 mg by mouth 3 times daily. 10/11/19 24 Active Entresto 49-51 mg TabletIndications :Chronic systolic congestive heart failure (CMS/HCC) TAKE 1 TABLET BY MOUTH TWICE A DAY 60 Tablet 5 05/22/19 25 Active carvediloL (COREG) 25 mg tabletIndications :Essential (primary) hypertension,Dysl ipidemia,Dilated cardiomyopathy (CMS/HCC),Chronic systolic congestive heart failure (CMS/HCC) Take 1 Tablet (25 mg) by mouth 2 times daily. 180 Tablet 2 07/31/19 25 Active spironolactone (ALDACTONE) 25 mg tabletIndications :Essential (primary) hypertension,Dysl ipidemia,Dilated cardiomyopathy (CMS/HCC),Chronic systolic congestive heart failure (CMS/HCC) TAKE 1 TABLET BY MOUTH EVERY DAY 90 Tablet 01/21/20 25 Active amLODIPine (NORVASC) 10 mg tabletIndications :Essential (primary) hypertension,Dysl ipidemia,Dilated cardiomyopathy (CMS/HCC),Chronic systolic congestive heart failure (CMS/HCC) TAKE 1 TABLET (10 MG) BY MOUTH DAILY. 90 Tablet 01/26/20 25 Active atorvastatin (LIPITOR) 20 mg tabletIndications :Essential (primary) hypertension,Dysl ipidemia,Dilated cardiomyopathy (CMS/HCC),Chronic systolic congestive heart failure (CMS/HCC) TAKE 1 TABLET BY MOUTH EVERYDAY AT BEDTIME 90 Tablet 01/26/20 25 Active amLODIPine (NORVASC) 10 mg tabletIndications :Essential (primary) hypertension,Dysl ipidemia,Dilated cardiomyopathy (CMS/HCC),Chronic systolic congestive heart failure (CMS/HCC) Take 1 Tablet (10 mg) by mouth daily. 90 Tablet 1 07/31/19 25 2024 Discontinued spironolactone (ALDACTONE) 25 mg tabletIndications :Essential (primary) hypertension,Dysl ipidemia,Dilated cardiomyopathy (CMS/HCC),Chronic systolic congestive heart failure (CMS/HCC) Take 1 Tablet (25 mg) by mouth daily. 90 Tablet 1 07/31/19 25 2024 Discontinued atorvastatin (LIPITOR) 20 mg tabletIndications :Essential (primary) hypertension,Dysl ipidemia,Dilated cardiomyopathy (CMS/HCC),Chronic systolic congestive heart failure (CMS/HCC) TAKE 1 TABLET BY MOUTH EVERYDAY AT BEDTIME 90 Tablet 10/27/19 25 2024 Discontinued Active Problems No known active problems Encounters Date Type Department Care Team Description 02/04/2025 Refill [facility] Heart and Vascular - [address] [facility] 300 [address] [facility] [address] [place] [address] Tobias Thomas MD Essential (primary) hypertension; Dyslipidemia; Dilated cardiomyopathy (CMS/HCC); Chronic systolic congestive heart failure (CMS/HCC) 01/29/2025 Abstract [facility] Heart and Vascular - [address] [facility] 202 [address] [facility] [address] [place] [address] Provider, Abstract 01/28/2025 Telephone [facility] Heart and Vascular [facility] [address] [facility] [address] [place] [address] Tobias Thomas MD cardiac clearance for colonoscopy/egd 02/09/25 01/25/2025 Results Follow-Up [facility] Heart and Vascular - [address] [place] [address] Tobias Thomas MD HEPATIC FUNCTION PANEL, LIPID PANEL 01/25/2025 Refill [facility] Heart and Vascular - [address] [facility] [address] [place] [address] Tobias Thomas MD Essential (primary) hypertension; Dyslipidemia; Dilated cardiomyopathy (CMS/HCC); Chronic systolic congestive heart failure (CMS/HCC) 01/23/2025 Refill [facility] Heart and Vascular - [address] [place] [address] Tobias Thomas MD Essential (primary) hypertension; Dyslipidemia; Dilated cardiomyopathy (CMS/HCC); Chronic systolic congestive heart failure (CMS/HCC) 01/20/2025 Refill [facility] Heart and Vascular - [address] [address] [facility] [address] [place] [address] Tobias Thomas MD Essential (primary) hypertension; Dyslipidemia; Dilated cardiomyopathy (CMS/HCC); Chronic systolic congestive heart failure (CMS/HCC) 11/17/2024 9:15 AM CDT Procedure visit [facility] Heart and Vascular - [address] [place] [address] Chronic systolic heart failure (CMS/HCC) (Primary Dx); Dilated cardiomyopathy (CMS/HCC); Presence of cardiac defibrillator from Last 3 Months Family History Medical History Relation Name Comments Diabetes Father Heart Disease Neg Hx Relation Name Status Comments Father Social History Tobacco Use Types Packs/Day Years Used Date Smoking Tobacco: Never Tobacco Cessation:Counseling Given: Not Answered Sex and Gender Information Value Date Recorded Sex Assigned at Not on file Legal Sex Male 1:28 PM CDT Gender Identity Not on file Sexual Orientation Not on file Last Filed Vital Signs Vital Sign Reading Time Taken Comments Blood Pressure 128/80 07/10/2024 3:52 PM SURGICAL TECHNOLOGIST Pulse 88 07/10/2024 3:52 PM SURGICAL TECHNOLOGIST Temperature - - Respiratory Rate - - Oxygen Saturation - - Inhaled Oxygen Concentration - - Weight 100.9 kg (222 lb 6.4 oz) 07/10/2024 3:52 PM SURGICAL TECHNOLOGIST Height 167.6 cm (5' 6) 07/10/2024 3:52 PM SURGICAL TECHNOLOGIST Body Mass Index 35.9 07/10/2024 3:52 PM SURGICAL TECHNOLOGIST Plan of Treatment Upcoming Encounters Date Type Department Care Team (Late st Contact Info) Description 02/16/2025 9:00 AM CDT Procedure visit [facility] Heart and Vascular Electrophysiology - [address] [facility] [address] [facility] [address] [place] [address] 07/13/2025 1:00 PM SURGICAL TECHNOLOGIST Appointment [facility] Heart and Vascular Testing [facility] [address] [facility] [address] [place] [address] [place] [address] [facility] 300 [place] [address] 07/13/2025 2:00 PM SURGICAL TECHNOLOGIST Office Visit [facility] Heart and Vascular - [address] [facility] [address] [facility] [address] [place] [address] Sylvia Alonzo, SVETA-RACHANA [address] [facility] 300 [place] [address] 07/13/2025 2:30 PM SURGICAL TECHNOLOGIST Procedure visit [facility] Heart and Vascular Electrophysiology - [address] [facility] [address] [facility] [address] [place] [address] Health Maintenance Due Date Last Done Comments DIABETES ANNUAL FOOT EXAM 1990 DIABETES ANNUAL RETINAL EXAM 1990 DIABETES MICROALBUMIN ANNUAL SCREEN 1990 HEPATITIS B VACCINES (1 of 3 - 19+ 3-dose series) 10/16/1991 10/31/2015 DTAP/TDAP/TD VACCINES (1 - Tdap) 05/21/2014 05/20/19 15 COLORECTAL SCREENING 2017 Colorectal Cancer Screening 2017 FIT-DNA Q 3 years 2017 FIT/FOBT Q 1 year 2017 Flex Sig/CT Colonography Q 5 years 2017 DIABETES HBA1C Q 6 MONTHS 11/06/2021 05/08/2021 ZOSTER VACCINE (1 of 2) 2022 INFLUENZA VACCINE (#1) 2024 01/28/2020, 2018 LDL CHOLESTEROL ANNUAL 01/22/2026 01/22/2025, 2022 Procedures Procedure Name Priority Date/Time Associated Diagnosis Comments LIPID PANEL Routine 01/22/2025 9:37 AM CDT Mixed hyperlipidemia HEPATIC FUNCTION PANEL Routine 01/22/2025 9:37 AM CDT Mixed hyperlipidemia MD REM INTERROG PM/LDLS PM/IDS <90 D TECH REVIEW Routine 11/17/2024 4:03 PM CDT Chronic systolic heart failure (CMS/HCC) Dilated cardiomyopathy (CMS/HCC) Presence of cardiac defibrillator MD INTERROGATION EVAL REMOTE </90 D 1/2/SAAS ARCHITECT LD DFB Routine 11/17/2024 4:03 PM CDT Chronic systolic heart failure (CMS/HCC) Dilated cardiomyopathy (CMS/HCC) Presence of cardiac defibrillator from Last 3 Months Results * HEPATIC FUNCTION PANEL (01/22/2025 9:37 AM CDT) TOTAL PROTEIN 7.5 6.1 - 8.1 g/dL [facility] ALBUMIN 4.3 3.6 - 5.1 g/dL [facility] GLOBULIN 3.2 1.9 - 3.7 g/dL (calc) [facility] ALBUMIN/GLOBULIN RATIO 1.3 1.0 - 2.5 (calc) [facility] BILIRUBIN TOTAL 0.4 0.2 - 1.2 mg/dL [facility] BILIRUBIN DIRECT 0.1 < OR = 0.2 mg/dL [facility] BILIRUBIN INDIRECT 0.3 0.2 - 1.2 mg/dL (calc) [facility] ALKALINE PHOSPHATASE 87 35 - 144 U/L [facility] AST 25 10 - 35 U/L [facility] ALT 16 9 - 46 U/L [facility] Comment: FASTING:YES FASTING: YES Test Performed at: [place] [address] [place] [address] Moises Bourgeois Blood 01/22/2025 9:37 AM CDT 01/22/2025 9:38 AM CDT us Tobias Thomas MD CHEMISTRY ORDERABLES Fi nal Result [facility] [phone] [place] [address] [place] [address] * LIPID PANEL (01/22/2025 9:37 AM CDT) CHOLESTEROL 107 <200 mg/dL [facility] HDL 41 > OR = 40 mg/dL [facility] TRIGLYCERIDE 105 <150 mg/dL [facility] LDL CALCULATED 47 mg/dL (calc) [facility] Comment: Reference range: <100 Desirable range <100 mg/dL for primary prevention; <70 mg/dL for patients with CHD or diabetic patients with > or = 2 CHD risk factors. LDL-C is now calculated using the Palak calculation, which is a validated novel method providing better accuracy than the Friedewald equation in the estimation of LDL-C. Berhane SS et al. ARNOL. 2013;310(19): 8763-0806 (http://education.AB Group/faq/IJB456) CHOL/HDL RATIO 2.6 <5.0 (calc) [facility] [place] NON-HDL CHOLESTEROL 66 <130 mg/dL (calc) [facility] Comment: For patients with diabetes plus 1 major ASCVD risk factor, treating to a non-HDL-C goal of <100 mg/dL (LDL-C of <70 mg/dL) is considered a therapeutic option. Test Performed at: [facility] [place] [address] [place] [address] Moises Bourgeois Blood 01/22/2025 9:37 AM CDT 01/22/2025 9:38 AM CDT us Tobias Thomas MD CHEMISTRY ORDERABLES Fi nal Result [facility] [phone] [place] [address] [place] [address] * MD INTERROGATION EVAL REMOTE </90 D 1/2/SAAS ARCHITECT LD DFB, MD REM INTERROG PM/LDLS PM/IDS <90 D TECHREVIEW (11/17/2024 4:03 PM CDT) Narrative [facility] - 11/17/2024 4:03 PM CDT Darby Knowles RN 11/17/2024 4:05 PM Routine, Remote Device Interrogation: The patient is followed by Dr. Lucia for his cardiology care. Appropriate [employer], Subcutaneous ICD function. The presenting rhythm is SR. The battery status is stable, indicating an estimated remaining longevity of 43%. The electrode impedance is stable. Since 08/19/2024, no arrhythmias were detected. The patient is scheduled for a routine, remote f/u via Latitude in 3 months. Conclusion: The device is functioning normally. No arrhythmias were detected. Procedure Note Darby Knowles RN - 11/17/2024 4:03 PM CDT Routine, Remote Device Interrogation: The patient is followed by Dr. Lucia for his cardiology care. Appropriate [employer], Subcutaneous ICD function. The presenting rhythm is SR. The battery status is stable, indicating an estimated remaining longevityof 43%. The electrode impedance is stable. Since 08/19/2024, no arrhythmias were detected. The patient is scheduled for a routine, remote f/u via Latitude in 3months. Conclusion: The device is functioning normally. No arrhythmias were detected. us Anupam Muro MD CARDIAC SERVICES ORDERABLES Liv martinez Result [facility] [address] [place] [address] from Last 3 Months Insurance [facility] [id number]
--- OUTSIDE RECORDS SUMMARY | 2025-02-09 00:52 | XMS_ITS | Encounter Summary ---
Author Organization [facility] Address [facility] [place] [address] Care Team Providers Care Casing Man Name Role Phone Joel Ho MD Primary Care Provider [phone] Lang Olivas DO Primary Care Provider [phone] Chacho Allen MD Unavailable [phone] Rayshawn Young MD Primary Care Provider [phone] Encounter Details Date Type Department Care Team (Late st Contact Info) Description 11/05/2019 Hospital Follow-up Call [facility] [place] [address] Peggy Traore RN Social History Tobacco Use Types Packs/Day Years [...] have Coronavirus / COVID-19? No / Unsure 11/03/2019 6:52 PM CDT documented as of this encounter Functional [...] Rule Out 04/25/2020 04/25/2020 04/26/2020 9:57 PM MANAGER PRACTICE documented as of this encounter Care Teams Casing Man Relationship Specialty Start Date End Date Joel Ho MD [address] [place] [id number] PCP - General FAMILY PRACTICE 08/12/19 11/17/19 Lang Olivas DO [address] [place] [address] PCP - General FAMILY PRACTICE 11/18/19 07/23/22 Rayshawn Young MD [facility] [address] [place] [address] PCP - General FAMILY PRACTICE 07/24/22 Chacho Allen MD [facility] [address] [place] [address] Consulting Physician CLINICAL CARDIAC ELECTROPHYSIOLOGY 04/22/20 documented as of this encounter
--- OUTSIDE RECORDS SUMMARY | 2025-02-09 00:52 | XMS_ITS | Encounter Summary ---
Author Organization [facility] Address [facility] [place] [address] Care Team Providers Care Missile Technician Name Role Phone Lang Olivas DO Primary Care Provider [phone] Chacho Allen MD Unavailable [phone] Rayshawn Young MD Primary Care Provider [phone] Encounter Details Date Type Department Care Team (Late st Contact Info) Description 03/25/2020 Abstract [facility] at [address] [id number] Yohan Hawkins MA Social History Tobacco Use [...] or suspected to have Coronavirus / COVID-19? Unable to assess 03/23/2020 9:18 AM BOILER ROOM OPERATOR documented as of this encounter Functional Status * RETIRED Are you deaf or do you have serious difficulty hearing Answer Date of Assessment Author Status No 12/23/2019 5:35 PM CDT Activ e * RETIRED Are you blind or do you have serious difficulty seeing, even when wearing glasses? Answer Date of Assessment Author Status No 12/23/2019 5:35 PM CDT Activ e * Do you have serious difficulty walking or climbing stairs? Answer Date of Assessment Author Status No 12/23/2019 5:35 PM CDT Taylor Harper R N Active * Do you have difficulty dressing or bathing? Answer Date of Assessment Author Status No 12/23/2019 5:35 PM CDT Taylor Harper R N Active * Because of a physical, mental, or emotional condition, do you have difficulty doing errands alone such as visiting a doctor's office or shopping? Answer Date of Assessment Author Status No 12/23/2019 5:35 PM CDT Taylor Harper R N Active documented as of this encounter Mental Status * Because of a physical, mental, or emotional condition, do you have serious difficulty concentrating, remembering, or making decisions? Answer Entry Date Author Status No 12/23/2019 5:35 PM CDT Taylor Harper R N Active documented in this encounter Plan of Treatment Not on file documented as of this encounter Procedures Procedure Name Priority Date/Time Associated Diagnosis Comments BASIC METABOLIC PANEL Routine 03/24/2020 documented in this encounter Results * (ABNORMAL) BASIC METABOLIC PANEL (03/24/2020) SODIUM S/P/B 134 POTASSIUM S/P/B 4.6 CO2 23 CHLORIDE S/P/B 100 GLUCOSE 97 mg/dL CALCIUM S/P/B 9.5 BUN 20 CREATININE S/P/B 1.37(A) 0.7 - 1.3 EGFR AFR. AMER. 70 <=90 EGFR NON-AFR. AMER. 61 <=90 03/24/2020 us Doc [facility] Abstract LABORATORY Final Result documented in this encounter Visit Diagnoses Not on filedocumented in this encounter Additional Health Concerns Infection Onset Date Last Indicated Resolved Time MRSA Comment:Pos. MRSA nares 12/02/2019 12/03/2019 12/03/2019 COVID-19 Rule Out 04/25/2020 04/25/2020 04/26/2020 9:57 PM BOILER ROOM OPERATOR documented as of this encounter Care Teams Missile Technician Relationship Specialty Start Date End Date Lang Olivas DO PCP - General FAMILY PRACTICE 11/18/19 07/23/22 Rayshawn Young MD [address] [address] PCP - General FAMILY PRACTICE 07/24/22 Chacho Allen MD [address] [address] Consulting Physician CLINICAL CARDIAC ELECTROPHYSIOLOGY 04/22/20 documented as of this encounter
--- OUTSIDE RECORDS SUMMARY | 2025-02-09 00:53 | XMS_ITS | Patient Health Record ---
Author Organization [facility] Address [address] [facility] [address] [facility] [place] [address] Care Team Providers Care Group Practice Pediatrician Name Role Phone Haile Declan Unavailable [phone] Reason For Referral No Information Social History Sex Assigned At : Social History Observation Description Sex Assigned At Male Problems Problem Type SNOMED Code ICD Code Onset Dates Problem Status W/U Status Risk Notes Problem Diabetic renal disease (428137580) Type 2 diabetes mellitus with diabetic chronic kidney disease (E11.22) Active confirmed Problem Obesity (502845520) Obesity, unspecified (E66.9) Active confirmed Problem Heart failure (27833670) Heart failure, unspecified (I50.9) Active confirmed Problem Chronic kidney disease stage 3 (disorder) (315606547) Stage 3 chronic kidney disease (N18.30) Active confirmed Encounters Encounter Location Date Provider Diagnosis [facility] [address] [place] [address] 12/30/2024 Declan Be Stage 3 chronic kidney disease N18.30 ; Heart failure, unspecified I50.9 ; Obesity, unspecified E66.9 and Type 2 diabetes mellitus with diabetic chronic kidney disease E11.22 [facility] [address] [address] 01/20/2025 Declan Be Stage 3 chronic kidney disease N18.30 ; Heart failure, unspecified I50.9 ; Obesity, unspecified E66.9 ; Type 2 diabetes mellitus with diabetic chronic kidney disease E11.22 and Proteinuria, unspecified R80.9 Assessments Encounter Date Diagnosis (ICD Code) Assessment Notes Treatment Notes Treatment Clinical Notes Section Notes 12/30/2024 Heart failure, unspecified (ICD-10 - I50.9) 12/30/2024 Stage 3 chronic kidney disease (ICD-10 - N18.30) 01/20/2025 Heart failure, unspecified (ICD-10 - I50.9) 01/20/2025 Stage 3 chronic kidney disease (ICD-10 - N18.30) 01/20/2025 Obesity, unspecified (ICD-10 - E66.9) 12/30/2024 Obesity, unspecified (ICD-10 - E66.9) 12/30/2024 Type 2 diabetes mellitus with diabetic chronic kidney disease (ICD-10 - E11.22) 01/20/2025 Type 2 diabetes mellitus with diabetic chronic kidney disease (ICD-10 - E11.22) 01/20/2025 Proteinuria, unspecified (ICD-10 - R80.9) Plan Of Treatment Next Appt Details Provider Name:Declan Be , 02/10/2025 02:30:00 PM, [address], [place], [address],
--- OUTSIDE RECORDS SUMMARY | 2025-02-09 00:53 | XMS_ITS | Clinical Summary ---
Author Organization [facility] Address [address] [place] [address] Care Team Providers Care Unarmed Security Officer Name Role Phone Serenity Quiroz MD Primary Care Provider Source Comments [facility]non-owned Affiliates and Associated Physician Practices is amultiple site organization consisting of ambulatory clinics and hospital sitesin [place], [place], [place] and [place]. This disclosure is being madepursuant to the Care Everywhere program and may not contain all information available regarding this patient. Last updated 18.[facility] Social History Tobacco Use Types Packs/Day Years Used Date Smoking Tobacco: Never Assessed Sex and Gender Information Value Date Recorded Sex Assigned at Not on file Legal Sex Male 12:45 PM CDT Gender Identity Not on file Sexual Orientation Not on file Plan of Treatment Health Maintenance Due Date Last Done Comments COLOGUARD (AGES 45-75) - COL ON CA SCREENING 1972 COLON MONITORING 1972 COLONOSCOPY - COLON CA SCREENING 1972 CT COLONOGRAPHY - COLON CA SCREENING 1972 Colorectal Cancer Screening 1972 FIT - COLON CA SCREENING 1972 FLEX SIG - COLON CA SCREENING 1972 LIPID TESTING 1972 HIV SCREENING 10/16/1987 HEPATITIS C SCREENING 10/11/1990 DTAP/TDAP/TD VACCINES (1 - Tdap) 10/16/1991 HEPATITIS B VACCINE (1 of 3 - 19+ 3-dose series) 10/16/1991 PNEUMOCOCCAL VACCINE 50+ (1 of 1 - PCV) 2022 ZOSTER VACCINE (1 of 2) 2022 DEPRESSION SCREENING 05/20/2024 COVID-19 VACCINE (1 - 2023-2 5 season) 2025 INFLUENZA VACCINE (#1) 2025 HIB VACCINE Aged Out No longer eligi ble based on patient's age to complete this topic HPV VACCINE Aged Out No longer eligi ble based on patient's age to complete this topic MENINGOCOCCAL (Group B) VACC INE SHARED DECISION-MAKING Aged Out No longer eligibl e based on patient's age to complete this topic MENINGOCOCCAL GROUPS A/C/Y/W VACCINE Aged Out No longer eligible b ased on patient's age to complete this topic Insurance [facility] Care Teams Unarmed Security Officer Relationship Specialty Start Date End Date Serenity Quiroz MD [address] [place] [address] PCP - General Family Medicine 08/06/18
--- OUTSIDE RECORDS SUMMARY | 2025-02-09 00:53 | XMS_ITS | Clinical Summary ---
Author Organization [facility] Address [address] [place] [address] Phone Care Team Providers Care Miss[employer] Checkout Technician Name Role Phone Unavailable Primary Care Provider Unavailabl e Allergies Active Allergy Reactions Criticality Noted Date Comments Amoxicillin Swelling High 04/01/2019 Swelling of face and mouth Medications losartan-hydrochl orothiazide (HYZAAR) 100-12.5 MG TabletIndications :Essential hypertension Take 1 Tab by mouth. Active amLODIPine (NORVASC) 5 MG TabletIndications :Essential hypertension Take 1 Tab by mouth daily. 90 Tab 9 Active gabapentin (NEURONTIN) 600 MG TabletIndications :Sciatica of left side,Left foot drop Take 1 Tab by mouth 3 times daily. 90 Tab 3 9 Active traMADol (ULTRAM) 50 MG TabletIndications :Sciatica of left side,Left foot drop Take 1 Tab by mouth every 6 hours as needed for Moderate or more severe pain. 90 Tab 9 Active meloxicam (MOBIC) 7.5 MG TabletIndications :Sciatica of left side,Left foot drop,Rib pain on right side Take 1 Tab by mouth daily. 90 Tab 3 9 Active Active Problems Problem Noted Date Diagnosed Date Sciatica of left side 04/09/2019 Overview (04/09/2019): Pain go's down the leg and foot High blood pressure 04/09/2019 Abdominal hernia 10/30/2012 Resolved Problems Problem Noted Date Diagnosed Date Resolved Date Diabetes 04/09/2019 04/09/2019 Overview (04/09/2019): Patient has lost weight and per patient not had any problems after that Immunizations Immunization Administration Dates Next Due Influenza Vaccine, Quadrivalent, PF 04/09/2019 Family History Medical History Relation Name Comments No Known Problems Brother Diabetes Father No Known Problems Maternal Grandfather No Known Problems Maternal Grandmother No Known Problems Mother No Known Problems Other No Known Problems Paternal Grandfather No Known Problems Paternal Grandmother No Known Problems Sister 1 Stroke Sister 2 Relation Name Status Comments Brother Alive Father Maternal Grandfather Maternal Grandmother Mother Alive Other Paternal Grandfather Paternal Grandmother Sister 1 Alive Sister 2 Alive Social History Tobacco Use Types Packs/Day Years Used Date Smoking Tobacco: Never Smokeless Tobacco: Never Tobacco Cessation:Counseling Given: Yes Alcohol Use Standard Drinks/Week Comments Not Currently 0 (1 standard drink = 0.6 oz pur e alcohol) PHQ-2 Answer Date Recorded PHQ-2 Score 0 04/09/2019 Sexually Active Control Partners Comments Yes Natural Family Planning Female Sex and Gender Information Value Date Recorded Sex Assigned at Not on file Legal Sex Male 9:51 AM [employer] Gender Identity Not on file Sexual Orientation Not on file Occupation Industry Job Start Date Job End Date Disabled Not on file Not on file Not on file Last Filed Vital Signs Vital Sign Reading Time Taken Comments Blood Pressure 146/96 04/09/2019 2:58 PM [employer]CHO[employer] Pulse 27 04/09/2019 2:58 PM [employer]CHO[employer] Temperature 36.1 C (96.9 F) 04/09/2019 2:58 PM [employer]CHO[employer] Respiratory Rate 16 04/09/2019 2:58 PM [employer]CHO[employer]SE[employer] Oxygen Saturation 90% 04/09/2019 2:58 PM SCHO[employer] COUNSE[employer]OR Inhaled Oxygen Concentration - - Weight 81.1 kg (178 lb 12.8 oz) 04/09/2019 2:58 PM SCHOOL COUNSE[employer]OR Height 167.6 cm (5' 6) 04/09/2019 2:58 PM SCHOOL COUNSE[employer]OR Body Mass Index 28.86 04/09/2019 2:58 PM SCHOOL COUNSELLOR Plan of Treatment Health Maintenance Due Date Last Done Comments Hepatitis C Virus (HCV) Screening 1970 TdaP Immunization 1970 Hepatitis B Immunization (1 of 3 - 19+ 3-dose series) 10/16/1991 Cologuard 2017 Colonoscopy 2017 Colorectal Cancer Screening 2017 Immunochemical Fecal Occult Blood 2017 Pneumococcal Immunization (5 0+ years) (1 of 1 - PCV) 2022 Zoster Immunization (1 of 2) 2022 Influenza Immunization (#1) 2025 04/09/2019 SARS-COV-2 Immunization (4 - season) 2025 05/25/2021, 09/09/2020, 08/12/2020 Respiratory Syncytial Virus (RSV) Immunization (Adult) (1 - 1-dose 75+ series) 10/16/2047 Human Papillomavirus (HPV) Immunization Aged Out No longer eligible b ased on patient's age to complete this topic Meningococcal Immunization (ACWY) Aged Out No longer eligible b ased on patient's age to complete this topic Rotavirus Immunization Aged Out No lo nger eligible based on patient's age to complete this topic Insurance MEDICAID [employer]
[2025-02-09 12:43] VITALS: BP 144/94; PULSE 91; RESP 20; TEMP 36.6; O2SAT 100
[2025-02-09] MEDS: LACTATED RINGERS 1,000 ML 150 ML IV CONT (12:54)
--- NOTE | 2025-02-09 13:04 | WPDANESEPPF ---
Anes - Initial Pre Proc Eval Procedure: Operation Date: 02/09/25 14:15 Proposed Procedures p EGD & Diagnostic Colonoscopy - lCaudio Lomax MD Date/Time: 02/09/25 13:04 Surgeon: Claudio Lomax MD Pre Op Diagnosis: Gastro-esophageal reflux disease without esophagit Patient Data Age: 54 Gender: M Height: 1.7 m Weight: 93.9 kg Last Vital Signs Temp 97.8 F 02/09/25 12:43 Pulse 91 02/09/25 12:43 Resp 20 02/09/25 12:43 BP 144/94 H 02/09/25 12:43 Pulse Ox 100 02/09/25 12:43 O2 Del Method Room Air 02/09/25 12:43 Allergies Allergy/AdvReac Type Severity Reaction Status Date / Time amoxicillin Allergy Mild Swelling Verified 02/04/25 10:52 Home Medications ?Medication ?Instructions ?Recorded ?Confirmed ?Type carvedilol 25 mg tablet 25 mg PO DAILY 12/24/24 02/09/25 History fluticasone propionate 50 1 spray intranasal DAILY 12/24/24 02/09/25 History mcg/actuation nasal spray,suspension (Flonase Allergy Relief) metformin 500 mg tablet 500 mg PO BID 12/24/24 02/09/25 History omeprazole 20 mg capsule,delayed 20 mg PO DAILY 12/24/24 02/09/25 History release spironolactone 25 mg tablet 25 mg PO DAILY 12/24/24 02/09/25 History atorvastatin 20 mg tablet 20 mg PO DAILY 02/04/25 02/09/25 History gabapentin 400 mg capsule 400 mg PO DAILY 02/04/25 02/09/25 History sacubitril 49 mg-valsartan 51 mg 1 tablet PO DAILY 02/04/25 02/09/25 History tablet (Entresto) Laboratory Tests 02/09/25 12:49 POC Capillary Glucose 107 H mg/dl (65-105) Patient hx anesthesia problems: none Family hx anesthesia problems: none Results Review: All pre-operative results and documents have been reviewed as part of the pre-operative evaluation. [facility] Past Medical History Medical History Diabetes mellitus Chronic kidney disease Cardiomyopathy CHF (congestive heart failure) GERD (gastroesophageal reflux disease) Anemia Diabetes type [address] Afib Social History Social History Smoking status: Never smoker Alcohol intake: current Alcohol use details: Social Substance use: never Substance use type: marijuana Other substance usage details: medical MJ Living arrangements: with family Spiritual care concerns: No Anes - Eval Final PreProcedure Day of Procedure 02/09/25 13:04 Patient weight: obese Lungs: normal air movement Airway: Mallampati scale class II Neurological: alert and oriented Last oral intake: >/= 8 hours ASA classification: IV Emergent: no Anesthetic plan: proceed Anesthesia type and monitoring: general GIVS and standard monitoring Results Review: All pre-operative results and documents have been reviewed as part of the pre-operative evaluation. BMI 32, Hyperlipidemia, DM fsbs 107, nonischemic cardiomyopathy LVEF 50%. Informed Consent: The patient's anesthetic plan and its attendant risks and benefits were discussed with the patient/family/POA. Questions were solicited and answers provided to the satisfaction of the patient/family/POA.
--- NOTE | 2025-02-09 13:36 | PM.HPGS ---
History of Present Illness History of Present Illness Consent: Risks, benefits, and alternatives have been discussed and questions answered. Patient agrees to proceed with procedure. Chief complaint: Gastro-esophageal reflux disease without esophagit Narrative: Harmony Reese is a 54 year old male with anemia, denies overt gib, here for egd and colonoscopy Review of Systems Review of Systems: All systems reviewed & are unremarkable except as noted in HPI and below PMFSH Past Medical History Medical History Diabetes mellitus Chronic kidney disease Cardiomyopathy CHF (congestive heart failure) GERD (gastroesophageal reflux disease) Anemia Diabetes type [address] Afib Social History Social History Smoking status: Never smoker Alcohol intake: current Alcohol use details: Social Substance use: never Substance use type: marijuana Other substance usage details: medical MJ Living arrangements: with family Spiritual care concerns: No Meds Home Medications and Allergies Home Medications ?Medication ?Instructions ?Recorded ?Confirmed ?Type carvedilol 25 mg tablet 25 mg PO DAILY 12/24/24 02/09/25 History fluticasone propionate 50 1 spray intranasal DAILY 12/24/24 02/09/25 History mcg/actuation nasal spray,suspension (Flonase Allergy Relief) metformin 500 mg tablet 500 mg PO BID 12/24/24 02/09/25 History omeprazole 20 mg capsule,delayed 20 mg PO DAILY 12/24/24 02/09/25 History release spironolactone 25 mg tablet 25 mg PO DAILY 12/24/24 02/09/25 History atorvastatin 20 mg tablet 20 mg PO DAILY 02/04/25 02/09/25 History gabapentin 400 mg capsule 400 mg PO DAILY 02/04/25 02/09/25 History sacubitril 49 mg-valsartan 51 mg 1 tablet PO DAILY 02/04/25 02/09/25 History tablet (Entresto) Allergies Allergy/AdvReac Type Severity Reaction Status Date / Time amoxicillin Allergy Mild Swelling Verified 02/04/25 10:52 Vital Signs Vital Signs - 24 hr 02/09/25 12:43 Temperature 97.8 F Pulse Rate 91 Respiratory Rate 20 Blood Pressure 144/94 H Pulse Oximetry 100 Oxygen Delivery Room Air Exam Const: General: comfortable and no acute distress HENMT: Face/Nose/Sinus: Normal nares present Eyes: General: appearance normal, both eyes and all related structures Neck: Neck: no JVD Resp: Auscultation: clear to auscultation bilaterally Cardio: Rate: regular rate Rhythm: regular rhythm GI: Inspection: non-distended GI Palp: Yes Soft to palpation Skin: General skin exam: normal color Neuro: Speech: normal speech Extrem: General: normal to inspection Psych: Mental Status: mental status grossly normal Assessment and Plan Assessment and plan (1) Anemia: Code(s): D64.9 - Anemia, unspecified Status: Acute Assessment and Plan: egd and colonoscopy
--- NOTE | 2025-02-09 13:52 | S_PTH ---
PATIENT: Harmony Reese LOC: [facility]#:[id number] AGE/SX: 54/M ROOM: RE02/09/[address]: Claudio Lomax MD : 1970 BED: DIS: 02/09/2025 SPEC #: [id number] RECD: 02/10/25 10:01 STATUS: PURVI HORAN #: [id number] NATACHA: 02/09/25 13:[address]: Claudio Lomax DEPT: [facility] Surgical RECD BY: Kaylie Ibanez ENTERED: 02/10/25 10:02 SP TYPE: Surgical OTHR DR: Aftab Hernandez, MViri Tissues: A - Gastric Biopsy B - Small Bowel Bx Procedures: Hematoxylin and Eosin Stain Gross and Microscopic Level 4
--- NOTE | 2025-02-09 13:53 | SUR.OPER ---
EGD TIME [id number], COLONOSCOPY START TIME 1359
[2025-02-09 14:06] VITALS: BP 102/70; PULSE 80; RESP 25; O2SAT 100
[2025-02-09 14:16] VITALS: BP 125/88; PULSE 81; RESP 23; O2SAT 99
[2025-02-09 14:26] VITALS: BP 126/90; PULSE 77; RESP 20; O2SAT 97
== END 2025-02-09 14:55 | disposition home or self-care (01) ==
PROVIDERS: PCP Internal Medicine Infectious Disease; Referring Provider Nurse Practitioner Family; Visit Provider Internal Medicine Gastroenterology
PROC: 0DJ08ZZ Inspection of Upper Intestinal Tract, Via Natural or Artificial Opening Endoscopic (ICD-10-PCS; CPT 45378; principal; 2025-02-09 14:15)
DX: D64.9 Anemia, unspecified (principal); K21.9 Gastro-esophageal reflux disease without esophagitis; E78.5 Hyperlipidemia, unspecified; E11.22 Type 2 diabetes mellitus with diabetic chronic kidney disease; N18.9 Chronic kidney disease, unspecified; I42.8 Other cardiomyopathies; I50.9 Heart failure, unspecified; I48.91 Unspecified atrial fibrillation; F12.90 Cannabis use, unspecified, uncomplicated; E66.9 Obesity, unspecified; Z68.32 Body mass index [BMI] 32.0-32.9, adult; Z79.84 Long term (current) use of oral hypoglycemic drugs; Z95.810 Presence of automatic (implantable) cardiac defibrillator
CPT/HCPCS: 43239; 45378; 82948; 88305; J2003; J2704; J7120